=== PATIENT | male | born 1945 | race Caucasian/White ===

== ENCOUNTER 2021-09-17 13:17 | Emergency (ER) | payer MEDICARE, MEDICAID ==
[2021-09-17 19:38] VITALS: BP 131/71; PULSE 72
== END 2021-09-17 14:30 | disposition home or self-care (01) ==
LOC: VM.ED 13:17
DX: N40.1 Benign prostatic hyperplasia with lower urinary tract symptoms (principal); R33.8 Other retention of urine; Z79.82 Long term (current) use of aspirin
CPT/HCPCS: 51702; 99283-25

== ENCOUNTER 2021-09-23 12:17 | Emergency (ER) | payer MEDICARE, MEDICAID ==
[2021-09-23 13:36] VITALS: BP 109/72; PULSE 77
== END 2021-09-23 14:01 | disposition home or self-care (01) ==
LOC: VM.ED 12:17
DX: R39.12 Poor urinary stream (principal); Z79.899 Other long term (current) drug therapy; Z79.82 Long term (current) use of aspirin; Z79.01 Long term (current) use of anticoagulants
CPT/HCPCS: 99283